=== PATIENT | male | born 1940 | race Caucasian/White ===

== ENCOUNTER → 2017-05-17 | Outpatient (CLI) | payer MEDICARE, BC ==
--- NOTE | 2017-05-17 15:25 | US ---
EXAMINATION TYPE: US kidneys/renal and bladder DATE OF EXAM: 05/17/2017 COMPARISON: CLINICAL HISTORY: N18.4 Chronic kidney disease stage 4. Patient states no pain, just a check up. No surgeries EXAM MEASUREMENTS: Right Kidney: 9.8 x 54 x 5.1 cm Left Kidney: 10.4 x 4.0 x 4.4 cm Right Kidney: wnl Left Kidney: wnl Bladder: distended, wnl as visualized Bilateral Jets seen IMPRESSION: Normal retroperitoneal ultrasound
== END | disposition home or self-care (01) ==
LOC: RADUSWWP 14:36
PROVIDERS: ATTEND Internal Medicine Nephrology
DX: N18.4 Chronic kidney disease, stage 4 (severe) (principal)
CPT/HCPCS: 76770

== ENCOUNTER 2018-05-30 09:34 | Emergency (ER) | payer MEDICARE ==
--- NOTE | 2018-05-30 09:47 | ED ---
General Adult HPI - General Stated complaint: CARDIAC ARREST Time Seen by Provider: 05/30/18 09:34 Source: RN notes reviewed - History of Present Illness Initial comments: This is a 78-year-old male who presents emergency Department after cardiac arrest. According to the daughter the patient was having difficult to breathing his chest pain she was going to take him to the doctor's and when she came back in the room about 10 minutes later he was having severe chest pain and shortness of breath and by the time the EMS arrived he had stopped breathing. According to EMS the patient went pulseless almost immediately after arrival. Patient was in and out of V. fib and V. tach and they shocked the patient 4 times gave the patient multiple doses of epinephrine as well as amiodarone. Patient was pulseless on arrival and had been pulseless for over half an hour at that time. CPR continued and the patient was already intubated with bilateral breath sounds no other history was available at this time. Review of Systems ROS Statement: Those systems with pertinent positive or pertinent negative responses have been documented in the HPI. ROS Other: All systems not noted in ROS Statement are negative. General Exam - General Exam Comments Initial Comments: GENERAL: Patient is well-developed and well-nourished. Patient was unresponsive and apneic patient was intubated and we were bagging him at this time ENT: Neck is soft and supple. EYES: Pupils were fixed and unresponsive PULMONARY: Breath sounds are heard bilaterally with bagging and when bagging. The patient was apneic CARDIOVASCULAR: No heart sounds were heard no pulses were palpated anywhere ABDOMEN: Soft and nontender with normal bowel sounds. SKIN: Skin is clear with no lesions or rashes and otherwise unremarkable. NEUROLOGIC: Patient had a GCS of 3 MUSCULOSKELETAL: No extremity movement PSYCHIATRIC: Unable to perform Medical Decision Making - Medical Decision Making We continued to follow ACLS protocol gave the patient bicarb and another epinephrine I spoke with family the patient had been down at this point in time 35 minutes we pronounced the patient at 941. Disposition Clinical Impression: Cardiopulmonary arrest Disposition: Referrals: Carlos Miller DO [Primary Care Provider] - 1-2 days Time of Disposition: 09:46 Preliminary Cause of : Cardiopulmonary arrest
== END 2018-05-30 11:15 | disposition expired ==
LOC: EC 09:34
DX: I46.9 Cardiac arrest, cause unspecified (principal)
CPT/HCPCS: 92950; 99285